=== PATIENT | male | born 1995 | race Caucasian/White ===

== ENCOUNTER 2024-10-06 02:26 | Emergency (ER) | payer SELFPAY ==
--- NOTE | 2024-10-06 02:56 | EDPHYS ---
Physician Documentation [facility] Name: Immanuel Mike Age: 29 yrs Sex: Male : 1995 Arrival Date: 10/06/2024 Time: 02:26 Bed 6 Private MD: ED Physician Mook Staton HPI: 10/06 03:17 This 29 yrs old Male presents to ER via Ambulatory with complaints of Low Back Pain. rt 03:17 Patient presents to the ED with a right low back pain that occurred after he bent down. rt Denies lifting any heavy objects. Denies radiation of the pain. Is aching nature, mild in severity, no other aggravating or alleviating factors.. Historical: - Allergies: 02:48 No Known Allergies; kd3 - Immunization history:: Adult Immunizations up to date. - Infectious Disease History:: Denies. - Social history:: Smoking status: Reported history of juuling and/or vaping. - Family history:: not pertinent. ROS: 03:17 Constitutional: Negative for fever, chills, and weight loss, Cardiovascular: Negative rt for chest pain, palpitations, and edema, Respiratory: Negative for shortness of breath, cough, wheezing, and pleuritic chest pain, Abdomen/GI: Negative for abdominal pain, nausea, vomiting, diarrhea, and constipation, Skin: Negative for injury, rash, and discoloration, Neuro: Negative for headache, weakness, numbness, tingling, and seizure, 03:17 Back: Positive for pain at rest, pain with movement, Exam: 03:17 Constitutional: This is a well developed, well nourished patient who is awake, alert, rt and in no acute distress. Head/Face: Normocephalic, atraumatic. Chest/axilla: Normal chest wall appearance and motion. Nontender with no deformity. No lesions are appreciated. Cardiovascular: Regular rate and rhythm with a normal S1 and S2. No gallops, murmurs, or rubs. Normal PMI, no JVD. No pulse deficits. Respiratory: Lungs have equal breath sounds bilaterally, clear to auscultation and percussion. No rales, rhonchi or wheezes noted. No increased work of breathing, no retractions or nasal flaring. Abdomen/GI: Soft, non-tender, with normal bowel sounds. No distension or tympany. No guarding or rebound. No evidence of tenderness throughout. 03:17 Back: Tenderness to the right lower lumbar region, no midline tenderness, no step-offs, Vital Signs: 02:46 BP 107 / 65; Pulse 65; Resp 16; Temp 98.1(O); Pulse Ox 98% on R/A; Weight 100.7 kg; kd3 Height 5 ft. 11 in. ; 02:46 Body Mass Index 30.96 (100.70 kg, 180.34 cm) kd3 MDM: 02:51 Medical Screening Exam initiated rt 03:17 Differential diagnosis: Muscle strain, low back pain. Data reviewed: vital signs, rt nurses notes. I considered the following discharge prescriptions or medication management in the emergency department Medications were administered in the Emergency Department. See MAR. Test considered but Not performed: Other Details No red flag symptoms to suggest cauda equina syndrome, spinal epidural abscess, no trauma, emergent MRI, CT scan are not indicated. Counseling: I had a detailed discussion with the patient and/or guardian regarding the historical points, exam findings, and any diagnostic results supporting the discharge/admit diagnosis, the need for outpatient follow up, to return to the emergency department if symptoms worsen or persist or if there are any questions or concerns that arise at home. Response to treatment: the patient's symptoms have markedly improved after treatment. Administered Medications: 03:11 Drug: Ibuprofen PO 800 mg PO once Route: PO; kd3 03:11 Drug: predniSONE PO 40 mg PO once Route: PO; kd3 03:11 Drug: Cyclobenzaprine PO 10 mg PO once Route: PO; kd3 Disposition Summary: 10/06/24 02:56 Discharge Ordered Notes: Location: Home rt Problem: new rt Symptoms: have improved rt Condition: Stable rt Diagnosis - Low back pain rt Followup: rt - With: Private Physician - When: 2 - 3 days - Reason: Discharge Instructions: - Discharge Summary Sheet rt - Acute Back Pain, Adult rt Forms: - Work release form rt - Medication Reconciliation Form rt - Antibiotic Education rt - Prescription Opioid Use rt - Patient Portal Instructions rt - Leadership Thank You Letter rt Prescriptions: - Cyclobenzaprine 10 mg Oral tablet - take 1 tablet ORAL route every 8 hours As needed; 15 tablet; Refills: 0, rt Product Selection Permitted - Prednisone 20 mg Oral tablet - take 2 tablets ORAL route once daily; 8 tablet; Refills: 0, Product Selection rt Permitted Signatures: Raissa Parker RN RN kd3 Mook Staton MD MD rt
--- NOTE | 2024-10-06 02:56 | ER ---
Nurse's Notes [facility] Name: Immanuel Mike Age: 29 yrs Sex: Male : 1995 Arrival Date: 10/06/2024 Time: 02:26 Bed 6 Private MD: Diagnosis: Low back pain Presentation: 10/06 02:46 Chief complaint: Patient states: I was at work today and around 1 am this morning i kd3 bent over to pick something up and i felt a sharp pain in my lower back. About 3 or 4 years ago i pulled muscles in my lumbar area and it feels similar to that. Now it feels really tight. I have a history of scoliosis. Coronavirus screen: Vaccine status: Patient reports being unvaccinated. Ebola Screen: No symptoms or risks identified at this time. Initial Sepsis Screen: Does the patient meet any 2 criteria? No. Patient's initial sepsis screen is negative. Does the patient have a suspected source of infection? No. Patient's initial sepsis screen is negative. Risk Assessment: Do you want to hurt yourself or someone else? Patient reports no desire to harm self or others. Onset of symptoms was October 06, 2024. 02:46 Method Of Arrival: Ambulatory kd3 02:46 Acuity: GRUPO 4 kd3 Triage Assessment: 02:48 General: Appears uncomfortable, Behavior is calm, cooperative. Pain: Complains of pain kd3 in right low back. Historical: - Allergies: 02:48 No Known Allergies; kd3 - Immunization history:: Adult Immunizations up to date. - Infectious Disease History:: Denies. - Social history:: Smoking status: Reported history of juuling and/or vaping. - Family history:: not pertinent. Screenin:11 [facility] ED Fall Risk Assessment (Adult) History of falling in the last 3 months, kd3 including since admission No falls in past 3 months (0 pts) Confusion or Disorientation No (0 pts) Intoxicated or Sedated No (0 pts) Impaired Gait Yes (1 pt) Mobility Assist Device Used No (0 pt) Altered Elimination No (0 pt) Score/Fall Risk Level 0 - 2 = Low Risk Oriented to surroundings. Abuse screen: Denies threats or abuse. Denies injuries from another. Nutritional screening: No deficits noted. Tuberculosis screening: No symptoms or risk factors identified. Vital Signs: 02:46 BP 107 / 65; Pulse 65; Resp 16; Temp 98.1(O); Pulse Ox 98% on R/A; Weight 100.7 kg; kd3 Height 5 ft. 11 in. ; 02:46 Body Mass Index 30.96 (100.70 kg, 180.34 cm) kd3 ED Course: 02:34 Patient arrived in ED. gm2 02:35 Mook Staton MD is Attending Physician. rt 02:36 Raissa Parker RN is Primary Nurse. kd3 02:48 Triage completed. kd3 02:48 Arm band placed on. kd3 03:11 Provided Education on: medications . kd3 03:11 No provider procedures requiring assistance completed. Patient did not have IV access kd3 during this emergency room visit. 03:12 Patient has correct armband on for positive identification. kd3 Administered Medications: 03:11 Drug: Ibuprofen PO 800 mg PO once Route: PO; kd3 03:11 Drug: predniSONE PO 40 mg PO once Route: PO; kd3 03:11 Drug: Cyclobenzaprine PO 10 mg PO once Route: PO; kd3 Medication: 03:12 VIS not applicable for this client. kd3 Outcome: 02:56 Discharge ordered by . rt 03:11 Discharged to home ambulatory, kd3 03:11 Condition: stable 03:11 Discharge instructions given to patient, family, Instructed on discharge instructions, follow up and referral plans. medication usage, Demonstrated understanding of instructions, follow-up care, medications, Prescriptions given X 2, 03:12 Patient left the ED. kd3 Signatures: Raissa Parker RN RN kd3 Mook Staton MD MD rt Jennie Juarez gm2
[2024-10-06] MEDS ORDERED: predniSONE 20 MG TAB ONE (03:02)
[2024-10-06] MEDS ORDERED: IBUPROFEN 400 MG TAB ONE (03:02)
[2024-10-06] MEDS ORDERED: CYCLOBENZAPRINE 10 MG TAB ONE (03:03)
[2024-10-06 03:17] VITALS: BP 107/65; TEMP 98.1; O2SAT 98
== END 2024-10-06 03:12 | disposition home or self-care (01) ==
LOC: ER 02:26
DX: M54.50 Low back pain, unspecified (principal)
CPT/HCPCS: 99283; J7512